=== PATIENT | female | born 1955 | race Caucasian/White ===

== ENCOUNTER 2016-04-10 17:54 | Emergency (ER) | payer BC ==
--- NOTE | 2016-04-10 19:25 | ERPHSYRPT ---
- History of Present Illness Time Seen by Provider: 04/10/16 19:00 Source: patient Exam Limitations: no limitations Patient Subjective Stated Complaint: pt co dizziness because left ear is bothering, she states she has been falling from it, it has been 4 days now. Triage Nursing Assessment: pt alert, unsteady on feetm grambling, restless, she states she is out of jake for 24 hours, skin w/d , resp easy Physician History: FOR THE PAST 5 DAYS PT HAS HAD DIZZINESS, CONFUSION, A LEFT EARACHE, FALLING EACH DAY WITH LOC 2 DAYS AGO AND HEAD CONTUSIONS ON THE LEFT WITH NECK PAIN. PT ALSO STATES DURING ONE OF THE FALLS SHE LANDED ON HER RIGHT HIP WITH RESULTANT PAIN. Allergies/Adverse Reactions: Sulfa (Sulfonamide Antibiotics) Allergy (Intermediate, Verified 04/10/16 18:23) Rash Home Medications: Baclofen 10 mg PO TID 11/27/15 [History] Methadone HCl 10 mg [DOLOPHINE 10MG Tablet] 10 mg PO BID 11/27/15 [History ] Pregabalin [Lyrica 150Mg] 150 mg PO TID 11/27/15 [History] Ropinirole 2Mg [Requip 2Mg Tab] 2 mg PO BID 11/27/15 [History] Metoprolol Succinate 25 mg DAILY 04/10/16 [History] Hx Tetanus, Diphtheria Vaccination/Date Given: No Hx Influenza Vaccination/Date Given: Yes Hx Pneumococcal Vaccination/Date Given: Yes Immunizations Up to Date: No - Review of Systems Constitutional: No Fever Ears, Nose, & Throat: Ear Pain (LEFT) Respiratory: No Dyspnea Cardiac: No Chest Pain Abdominal/Gastrointestinal: No Abdominal Pain, No Nausea, No Vomiting Musculoskeletal: Joint Pain (RIGHT HIP PAIN) Neurological: Dizziness, Headache, Other (CONFUSION; LOC.) All Other Systems: Reviewed and Negative - Past Medical History Pertinent Past Medical History: Yes Neurological History: Migraines, Peripheral Neuropathy Cardiac History: No Pertinent History Respiratory History: No Pertinent History Endocrine Medical History: No Pertinent History GI Medical History: GERD, Hernia - Past Surgical History Past Surgical History: Yes Female Surgical History: Tubal Ligation - Social History Smoking Status: Current every day smoker How long have you smoked: yrs Exposure to second hand smoke: Yes Drug Use: none Patient Lives Alone: No - Female History Hx Last Menstrual Period: post - Nursing Vital Signs Nursing Vital Signs: Initial Vital Signs Temperature 97.2 F Temperature Source Oral Pulse Rate 48 Respiratory Rate 20 Blood Pressure [] 149/86 Pain Intensity 8 - Physical Exam General Appearance: alert Eye Exam: PERRL/EOMI, eyes nml inspection Ears, Nose, Throat Exam: TMs normal, pharynx normal, moist mucous membranes Neck Exam: full range of motion, other (MILD POSTERIOR TENDERNESS) Respiratory Exam: lungs clear Cardiovascular Exam: normal heart sounds Gastrointestinal/Abdomen Exam: soft, normal bowel sounds, No tenderness Back Exam: normal range of motion Extremity Exam: normal range of motion, tenderness (MILD TENDERNESS OVER A BRUISE ON THE RIGHT HIP), No pedal edema Neurologic Exam: alert, cooperative, 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 nml as tested, normal mood/ affect Skin Exam: other (BRUISING OF THE LEFT SIDE OF THE FOREHEAD ~ 2 CM DIAMETER WITH MILD EDEMA) SpO2 Interpretation: normal SpO2: 96 Oxygen Delivery: Room Air - Course Nursing assessment & vital signs reviewed: Yes EKG Interpreted by Me: RATE (61), Sinus Rhythm, NORMAL AXIS, NORMAL INTERVALS - Radiology Exams Chest X-ray Interpretation: Interpreted by me, No Pneumonia Pelvis X-ray Interpretation: Interpreted by me, No Fracture Right Femur X-ray Interpretation: Interpreted by me, No Fracture - CT Exams Head CT Interpretation: Discussed w/radiologist (STABLE NORMAL CT HEAD COMPARED TO .) Cervical Spine CT Interpretation: Discussed w/radiologist (NO COMPS. MILD MOTION ARTIFACT. MILD LORDOTIC REVERSAL. 3MM ANTEROLISTHESIS C2 ON C3 ON C4 & MULTILEVEL DDD. NEGATIVE FX.) Ordered Tests: Active Orders 24 hr Category Date Time Status Online Publisher STAT Care 04/10/16 19:16 Active Cervical Collar Application STAT Care 04/10/16 21:22 Active EKG-ER Only STAT Care 04/10/16 19:16 Active IV Insertion STAT Care 04/10/16 19:16 Active CERVICAL SPINE WO CONTRAST [CT] Stat Exams 04/10/16 19:18 Taken CHEST 1 VIEW (PORTABLE) Stat Exams 04/10/16 19:17 Taken FEMUR Stat Exams 04/10/16 19:19 Taken HEAD WITHOUT CONTRAST [CT] Stat Exams 04/10/16 20:06 Taken PELVIS (1 OR 2 VIEWS) Stat Exams 04/10/16 19:19 Taken AMYLASE Stat Lab 04/10/16 19:20 Completed CBC W DIFF Stat Lab 04/10/16 19:20 Completed CMP Stat Lab 04/10/16 19:20 Completed CULTURE,URINE Stat Lab 04/10/16 21:36 Ordered Ethyl Alcohol,Urine Stat Lab 04/10/16 21:00 Completed LIPASE Stat Lab 04/10/16 19:20 Completed MAGNESIUM Stat Lab 04/10/16 19:20 Completed TROPONIN Stat Lab 04/10/16 19:20 Completed UA W/ MICROSCOPIC Stat Lab 04/10/16 21:00 Completed Urine Triage Profile Stat Lab 04/10/16 21:00 Completed Medication Summary Generic Name Dose Route Start Last Admin Trade Name Freq PRN Reason Stop Dose Admin Sodium Chloride 1,000 mls @ 100 mls/hr 04/10/16 19:30 04/10/16 19:49 Sodium Chloride 0.9% 1000 Ml IV 05/10/16 19:29 100 mls/hr .Q10H PRATIBHA Administration Ceftriaxone Sodium/Dextrose 50 mls @ 100 mls/hr 04/10/16 21:36 Rocephin 1 Gm-D5w 50 Ml Bag IV 04/10/16 22:05 STAT ONE Magnesium Oxide 400 mg 04/10/16 22:00 Mag-Ox 400 PO 05/10/16 21:59 BID PRATIBHA Magnesium Oxide 400 mg 04/10/16 22:00 Mag-Ox 400 PO 05/10/16 21:59 BID PRATIBHA Discontinued Medications Generic Name Dose Route Start Last Admin Trade Name Freq PRN Reason Stop Dose Admin Sodium Chloride Confirm 04/10/16 19:35 Sodium Chloride 0.9% 1000 Ml Administered 04/10/16 19:36 Dose 1,000 mls @ ud .ROUTE .[facility] Lab/Rad Data: Laboratory Result Diagrams 04/10/16 19:20 04/10/16 19:20 Laboratory Results 04/10/16 04/10/16 04/10/16 Range/Units 21:00 21:00 21:00 WBC (4.0-10.5) K/mm3 RBC (4.1-5.4) M/mm3 Hgb (12.0-16.0) gm/dl Hct (35-47) % MCV (78-100) fl MCH (26-32) pg MCHC (32-36) g/dl RDW (11.5-14.0) % Plt Count (150-450) K/mm3 MPV (6-9.5) fl Gran % (36.0-66.0) % Lymphocytes % (24.0-44.0) % Monocytes % (0.0-12.0) % Eosinophils % (0.00-5.0) % Basophils % (0.0-0.4) % Basophils # (0-0.4) Sodium (136-145) mEq/L Potassium (3.5-5.1) mEq/L Chloride (98-107) mEq/L Carbon Dioxide (21-32) mEq/L Anion Gap (5-15) MEQ/L BUN (9-20) mg/dL Creatinine (0.55-1.30) mg/dl Estimated GFR ML/MIN Glucose (70-110) MG/DL Calcium (8.5-10.1) mg/dL Magnesium (1.8-2.4) mg/dL Total Bilirubin (0.2-1.0) mg/dL AST (15-37) U/L ALT (12-78) U/L Alkaline Phosphatase (46-116) U/L Troponin I (0.000-0.056) ng/ml Serum Total Protein (6.4-8.2) gm/dL Albumin (3.4-5.0) g/dL Amylase (25-115) U/L Lipase (73-393) U/L Ur Collection Type CATH Urine Color FAYE (YELLOW) Urine Appearance SLIGHTLY CLOUDY (CLEAR) Urine pH 5.5 5.5 (5-6) Ur Specific [place] >=1.030 (1.005-1.025) Urine Protein NEGATIVE (Negative) Urine Glucose (UA) NEGATIVE (NEGATIVE) mg/dL Urine Ketones NEGATIVE (NEGATIVE) Urine Nitrite POSITIVE (NEGATIVE) Urine Bilirubin SMALL (NEGATIVE) Urine Urobilinogen 1 (0-1) mg/dL Urine WBC (Auto) TRACE (NEGATIVE) Urine RBC (Auto) NEGATIVE (0-5) Suraj/ul Urine Microscopic WBC 2-5 (0-5) /HPF Ur Epithelial Cells FEW (FEW) /HPF Urine Bacteria MANY (NEGATIVE) /HPF Urine Opiates Level NEG. (NEGATIVE) Ur Methadone POS. (NEGATIVE) Urine Barbiturates NEG. (NEGATIVE) Ur Phencyclidine (PCP) NEG. (NEGATIVE) Urine Amphetamine POS. (NEGATIVE) U Benzodiazepine Level NEG. (NEGATIVE) Urine Cocaine NEG. (NEGATIVE) Urine Marijuana (THC) POS. (NEGATIVE) Urine Ethyl Alcohol 3 (0.00-20) mg/dl Specimen Received 04/10/16:2100 04/10/16 04/10/16 Range/Units 19:20 19:20 WBC 5.2 (4.0-10.5) K/mm3 RBC 3.82 L (4.1-5.4) M/mm3 Hgb 11.5 L (12.0-16.0) gm/dl Hct 34.7 L (35-47) % MCV 90.8 (78-100) fl MCH 30.1 (26-32) pg MCHC 33.1 (32-36) g/dl RDW 14.2 H (11.5-14.0) % Plt Count 129 L (150-450) K/mm3 MPV 11.7 H (6-9.5) fl Gran % 49.5 (36.0-66.0) % Lymphocytes % 34.9 (24.0-44.0) % Monocytes % 13.1 H (0.0-12.0) % Eosinophils % 2.3 (0.00-5.0) % Basophils % 0.2 (0.0-0.4) % Basophils # 0.01 (0-0.4) Sodium 139 (136-145) mEq/L Potassium 3.8 (3.5-5.1) mEq/L Chloride 106 (98-107) mEq/L Carbon Dioxide 27.1 (21-32) mEq/L Anion Gap 9.9 (5-15) MEQ/L BUN 13 (9-20) mg/dL Creatinine 0.93 (0.55-1.30) mg/dl Estimated GFR > 60 ML/MIN Glucose 115 H (70-110) MG/DL Calcium 8.8 (8.5-10.1) mg/dL Magnesium 1.6 L (1.8-2.4) mg/dL Total Bilirubin 0.5 (0.2-1.0) mg/dL AST 23 (15-37) U/L ALT 20 (12-78) U/L Alkaline Phosphatase 82 (46-116) U/L Troponin I 0.017 (0.000-0.056) ng/ml Serum Total Protein 6.8 (6.4-8.2) gm/dL Albumin 3.4 (3.4-5.0) g/dL Amylase 15 L (25-115) U/L Lipase 63 L (73-393) U/L Ur Collection Type Urine Color (YELLOW) Urine Appearance (CLEAR) Urine pH (5-6) Ur Specific [place] (1.005-1.025) Urine Protein (Negative) Urine Glucose (UA) (NEGATIVE) mg/dL Urine Ketones (NEGATIVE) Urine Nitrite (NEGATIVE) Urine Bilirubin (NEGATIVE) Urine Urobilinogen (0-1) mg/dL Urine WBC (Auto) (NEGATIVE) Urine RBC (Auto) (0-5) Suraj/ul Urine Microscopic WBC (0-5) /HPF Ur Epithelial Cells (FEW) /HPF Urine Bacteria (NEGATIVE) /HPF Urine Opiates Level (NEGATIVE) Ur Methadone (NEGATIVE) Urine Barbiturates (NEGATIVE) Ur Phencyclidine (PCP) (NEGATIVE) Urine Amphetamine (NEGATIVE) U Benzodiazepine Level (NEGATIVE) Urine Cocaine (NEGATIVE) Urine Marijuana (THC) (NEGATIVE) Urine Ethyl Alcohol (0.00-20) mg/dl Specimen Received - Departure Time of Disposition: 21:42 Departure Disposition: Home Clinical Impression: HEAD CONTUSION, CERVICAL SPRAIN, CONTUSION OF THE RIGHT HIP, HYPOMAGNESEMIA, AMPHETAMINE AND MARIJUANA USE, UTI Condition: Fair Critical Care Time: No Referrals: CHE LOPEZ [Primary Care Provider] - Instructions: Urinary Tract Infection (UTI), Closed Head Injury, Whiplash Additional Instructions: FOLLOW UP WITH PRIVATE DOCTOR TOMORROW. WEAR SOFT C-COLLAR FOR 2 WEEKS ONLY WHILE AWAKE. Prescriptions: Naproxen 375 mg [Naprosyn 375 mg] 375 mg PO [id number] PRN #20 tablet PRN Reason: Pain Cyclobenzaprine HCl [Flexeril] 10 mg PO TID #20 tablet Nitrofurantoin Macro 100 mg [Macrobid 100MG Capsule] 100 mg PO BID #20 capsule
[2016-04-10] MEDS ORDERED: Sodium Chloride 0.9% 1000 ML 1,000 ML IV SCH (19:30)
[2016-04-10] MEDS ORDERED: Sodium Chloride 0.9% 1000 ML 1,000 ML ONE (19:35)
[2016-04-10 19:36] LABS: BASOPHIL % 0.2 % (0.0-0.4); Eosinophil % 2.3 % (0.00-5.0); Granulocytes % 49.5 % (36.0-66.0); Lymphocytes % 34.9 % (24.0-44.0); Mean Cell Volume 90.8 fl (78-100); Mean Corpuscular Hemoglobin 30.1 pg (26-32); Mean Platelet Volume 11.7 fl (6-9.5); Monocytes % 13.1 % (0.0-12.0); Platelet Count 129 K/mm3 (150-450); Red Blood Count 3.82 M/mm3 (4.1-5.4); Red Cell Distribution Width 14.2 % (11.5-14.0); White Blood Count 5.2 K/mm3 (4.0-10.5)
[2016-04-10 19:59] LABS: ALBUMIN 3.4 g/dL (3.4-5.0); ALKALINE PHOSPHATASE 82 U/L (46-116); ANION GAP 9.9 MEQ/L (5-15); BILIRUBIN,TOTAL 0.5 mg/dL (0.2-1.0); BLOOD UREA NITROGEN 13 mg/dL (9-20); CHLORIDE 106 mEq/L (98-107); Carbon Dioxide 27.1 mEq/L (21-32); Glucose 115 MG/DL (70-110); LIPASE 63 U/L (73-393); MAGNESIUM 1.6 mg/dL (1.8-2.4); Potassium 3.8 mEq/L (3.5-5.1); SGOT/AST 23 U/L (15-37); SGPT/ALT 20 U/L (12-78); SODIUM 139 mEq/L (136-145); TROPONIN 0.017 ng/ml (0.000-0.056); Total Protein 6.8 gm/dL (6.4-8.2)
[2016-04-10 21:27] LABS: Bacteria MANY /HPF (NEGATIVE); COMPLETE URINE MICROSCOPIC? YES; Collection Type CATH; Epithelial Cells FEW /HPF (FEW); Ph 5.5 (5-6)
[2016-04-10] MEDS ORDERED: ROCEPHIN 1 Gm-D5w 50 ml Bag** 50 ML IV ONE ×2 (21:36→21:49)
[2016-04-10] MEDS ORDERED: MAG-OX 400 ONE (21:49)
[2016-04-10] MEDS ORDERED: MAG-OX 400 PO SCH ×2 (22:00)
[2016-04-10 22:37] VITALS: BP 148/101; PULSE 54; O2SAT 96
--- NOTE | 2016-04-11 08:50 | XRAY ---
Indication: Frequent falls. Loss of consciousness. Comparison: None Portable chest demonstrates scattered calcified granulomas. No focal infiltrate, consolidation, or large effusion. Heart is not enlarged. Bony thorax intact with mild osteopenia and mild scoliosis. Impression: Nonacute chest with chronic features.
--- NOTE | 2016-04-11 08:50 | XRAY ---
Indication: Frequent falls. Loss of consciousness. Neck pain. Multiple contiguous axial images obtained through the head without contrast. Comparison: December 01, 2015. Again normal appearing brain parenchyma, ventricles, and bony calvarium. Right sphenoid sinus now demonstrates mild mucosal thickening with fluid leveling. Remaining visualized paranasal sinuses and mastoid air cells are clear. Impression: Again no acute intracranial abnormalities. Incidental paranasal sinus disease. CT DI 51.27
--- NOTE | 2016-04-11 08:52 | XRAY ---
Indication: Pain. Frequent falls. Comparison: None 2 views of the right femur obtained. No bony, articular, or soft tissue abnormalities. Pelvis reported separately.
--- NOTE | 2016-04-11 08:52 | XRAY ---
Indication: Right hip pain. Frequent falls. Comparison: None Single AP pelvis demonstrates pelvic phleboliths and minimal bilateral superior acetabular spurring. No other bony, articular, or soft tissue abnormalities.
--- NOTE | 2016-04-11 11:30 | XRAY ---
Indication: Frequent falls. Loss of consciousness. Neck pain. Multiple contiguous axial images obtained through the cervical spine. Sagittal and coronal reformatted images obtained. Comparison: None. Minimal multilevel motion artifact. Axial images negative for acute fracture, suspicious bony lesions, or spinal canal stenosis. Multilevel bilateral degenerative facet hypertrophy and anterior endplate spurring. Additional atlantoaxial degenerative changes. Sagittal and coronal reformatted images demonstrates mild lordotic reversal. There is approximately 3 mm anterolisthesis of C2 on C3 on C4. Disc spaces maintained. No acute compression fracture or jumped facet. Normal-appearing craniocervical junction. Visualized noncontrasted soft tissues demonstrates minimal right carotid calcifications and left apical calcified granulomas. CT head reported separately. Impression: 1. Negative for acute fracture. 2. Multilevel degenerative changes including grade 1 anterolisthesis of C2-C3-C4. CT DI 100.31
== END 2016-04-10 22:45 | disposition home or self-care (01) ==
LOC: ED 17:54
DX: S00.93XA Contusion of unspecified part of head, initial encounter (principal); S13.4XXA Sprain of ligaments of cervical spine, initial encounter; S70.01XA Contusion of right hip, initial encounter; E83.42 Hypomagnesemia; F15.90 Other stimulant use, unspecified, uncomplicated; F12.90 Cannabis use, unspecified, uncomplicated; N39.0 Urinary tract infection, site not specified
CPT/HCPCS: 36000; 36415; 70450; 71010; 72125; 72170; 73552; 80053; 80307; 80320; 81000; 82150; 83690; 83735; 83986; 84484; 85025; 87077; 87086; 87186; 93005; 93041; 96360; 96361; 96365; 99284; J0696; P9612

== ENCOUNTER 2016-04-27 01:27 | Emergency (ER) | payer BC ==
[2016-04-27] MEDS ORDERED: Sodium Chloride 0.9% 1000 ML 1,000 ML IV STA (01:47)
[2016-04-27] MEDS ORDERED: THIAMINE 200 MG/2 ML IV ONE (01:48)
--- NOTE | 2016-04-27 01:56 | ERPHSYRPT ---
- History of Present Illness Time Seen by Provider: 04/27/16 01:50 Source: patient Exam Limitations: no limitations Physician History: This is a 60-year-old white female with history of peripheral neuropathy GERD hiatal hernia who is on methadone She arrives with complaints that she believes that somebody put something poisonous substances in her ice cream this evening Patient states that she apparently feels that people have been messing with her television set she feels that her neighbors don't like her she feels that she went to eat she began to have terrible taste in her mouth she feels as if somebody put some substance into her ice cream states that she ate her ice cream somewhere between 7 and 12:30, She summoned the medics because she had the terrible taste in her mouth, On arrival she states she is having pain in all of her joints she denies any chest pain she is not short of breath she has not vomited, Patient had a similar presentation to [facility] recently, Patient denies any homicidal or suicidal ideation, Past medical history includes peripheral neuropathy, GERD, hiatal hernia, Past surgical history includes tubal ligation, Social history is positive for she smokes alcohol use patient states she had some sometime split some alcohol alcohol in her ice cream. Timing/Duration: other (somewhere between 7:00 last night ) Modifying Factors: Improves With: other (patient ate ice cream and consumed alcohol and began having bad taste in her mouth feels as if she has been poisoned) Associated Symptoms: malaise, other (patient has a bad taste in her mouth, all of her joints ache), No nausea, No vomiting, No abdominal pain, No shortness of breath, No heartburn, No diaphoresis, No cough, No chills, No chest pain, No fever, No headaches, No loss of appetite, No rash, No syncope, No seizure, No weakness Allergies/Adverse Reactions: Sulfa (Sulfonamide Antibiotics) Allergy (Intermediate, Verified 04/27/16 02:05) Rash Home Medications: Baclofen 10 mg PO TID 11/27/15 [History] Methadone HCl 10 mg [DOLOPHINE 10MG Tablet] 10 mg PO BID 11/27/15 [History ] Pregabalin [Lyrica 150Mg] 150 mg PO TID 11/27/15 [History] Ropinirole 2Mg [Requip 2Mg Tab] 2 mg PO BID 11/27/15 [History] Metoprolol Succinate 25 mg DAILY 04/10/16 [History] Hx Tetanus, Diphtheria Vaccination/Date Given: No Hx Influenza Vaccination/Date Given: Yes Hx Pneumococcal Vaccination/Date Given: Yes - Review of Systems Constitutional: No Fever, No Chills Eyes: No Symptoms, No Eye Pain, No Eye Redness, No Itchy, No Photophobia, No Tearing, No Vision Changes, No Double Vision, No Foreign Body Sensation Ears, Nose, & Throat: Other (patient states she has a bad taste in her mpout), No Ear Pain, No Ear Discharge, No Hearing Changes, No Tinnitus, No Nose Pain, No Nose Congestion, No Nose Discharge, No Sinus Drainage, No Epistaxis, No Mouth Pain, No Mouth Swelling, No Loose Teeth, No Throat Pain, No Throat Swelling, No Hoarse, No Painful Swallowing, No Snoring, No Stridor Respiratory: No Cough, No Dyspnea Cardiac: No Chest Pain, No Edema, No Syncope Abdominal/Gastrointestinal: No Abdominal Pain, No Nausea, No Vomiting, No Diarrhea Genitourinary Symptoms: No Dysuria Musculoskeletal: Arthralgias (Patient states all of her joints ache) Skin: No Rash Neurological: No Dizziness, No Focal Weakness, No Sensory Changes Psychological: Other (patient with possible paranoid ideation feels as if people are trying to poison her), No Suicidal Ideations, No Homicidal Ideations Endocrine: No Symptoms All Other Systems: Reviewed and Negative - Past Medical History Pertinent Past Medical History: Yes Neurological History: Migraines, Peripheral Neuropathy Cardiac History: No Pertinent History Respiratory History: No Pertinent History Endocrine Medical History: No Pertinent History GI Medical History: GERD, Hernia - Past Surgical History Past Surgical History: Yes Female Surgical History: Tubal Ligation - Social History Smoking Status: Current every day smoker How long have you smoked: yrs Exposure to second hand smoke: Yes Drug Use: marijuana Patient Lives Alone: No - Nursing Vital Signs Nursing Vital Signs: Initial Vital Signs Temperature 97.7 F Temperature Source Oral Pulse Rate 80 Respiratory Rate 16 Blood Pressure [Right Arm] 120/78 Pain Intensity 0 - Physical Exam General Appearance: mild distress, other (well-developed elderly appearing white female somewhat anxious rubbing her knees) Eye Exam: PERRL/EOMI, eyes nml inspection Ears, Nose, Throat Exam: normal ENT inspection Neck Exam: normal inspection, non-tender, supple, full range of motion Respiratory Exam: normal breath sounds, lungs clear, No respiratory distress Cardiovascular Exam: regular rate/rhythm, normal heart sounds, normal peripheral pulses Gastrointestinal/Abdomen Exam: soft, normal bowel sounds, No tenderness, No mass Back Exam: normal inspection, normal range of motion, No CVA tenderness, No vertebral tenderness Extremity Exam: normal inspection, normal range of motion, pelvis stable Neurologic Exam: alert, oriented x 3, cooperative, normal mood/affect, nml cerebellar function, nml station & gait, sensation nml, No motor deficits Skin Exam: normal color, warm, dry, No rash Lymphatic Exam: No adenopathy SpO2 Interpretation: normal (90%) - Course Nursing assessment & vital signs reviewed: Yes EKG Interpreted by Me: RATE (76 bpm), Sinus Rhythm, NORMAL AXIS, NORMAL QRS, Other (EKG, sinus rhythm, 76 beats per minute, normal axis, no acute ST or T wave changes, essentially normal EKG) Ordered Tests: Active Orders 24 hr Category Date Time Status Accucheck STAT Care 04/27/16 01:47 Active EKG-ER Only STAT Care 04/27/16 01:47 Active IV Insertion STAT Care 04/27/16 01:47 Active ACETAMINOPHEN Stat Lab 04/27/16 02:00 Completed CBC W DIFF Stat Lab 04/27/16 02:00 Completed CMP Stat Lab 04/27/16 02:00 Completed Ethyl Alcohol,Urine Stat Lab 04/27/16 02:20 Completed HCG QUALITATIVE,SERUM Stat Lab 04/27/16 02:00 Completed HCG, Quantitative (Inhouse) Stat Lab 04/27/16 02:00 Completed Lactic Acid Urgent Lab 04/27/16 02:09 Completed SALICYLATE Stat Lab 04/27/16 02:00 Completed TROPONIN Q3H Lab 04/27/16 02:00 Completed TROPONIN Q3H Lab 04/27/16 05:00 Ordered TROPONIN Q3H Lab 04/27/16 08:00 Ordered TROPONIN Q3H Lab 04/27/16 11:00 Ordered TROPONIN Q3H Lab 04/27/16 14:00 Ordered UA Stat Lab 04/27/16 02:20 Completed Urine Triage Profile Stat Lab 04/27/16 02:20 Completed Medication Summary Discontinued Medications Generic Name Dose Route Start Last Admin Trade Name Freq PRN Reason Stop Dose Admin Sodium Chloride 1,000 mls @ 999 mls/hr 04/27/16 01:47 04/27/16 02:06 Sodium Chloride 0.9% 1000 Ml IV 04/27/16 02:47 999 mls/hr .Q1H1M STA Administration Sodium Chloride Confirm 04/27/16 02:05 Sodium Chloride 0.9% 1000 Ml Administered 04/27/16 02:06 Dose 1,000 mls @ ud .ROUTE .STK-MED ONE Thiamine HCl 100 mg 04/27/16 01:48 04/27/16 02:06 Thiamine 200 Mg/2 Ml IV 04/27/16 01:49 100 mg STAT ONE Administration Thiamine HCl Confirm 04/27/16 02:05 Thiamine 200 Mg/2 Ml Administered 04/27/16 02:06 Dose 200 mg .ROUTE .STK-MED ONE Lab/Rad Data: Laboratory Result Diagrams 04/27/16 02:00 04/27/16 02:00 Laboratory Results 04/27/16 04/27/16 04/27/16 Range/Units 02:20 02:20 02:20 WBC (4.0-10.5) K/mm3 RBC (4.1-5.4) M/mm3 Hgb (12.0-16.0) gm/dl Hct (35-47) % MCV (78-100) fl MCH (26-32) pg MCHC (32-36) g/dl RDW (11.5-14.0) % Plt Count (150-450) K/mm3 MPV (6-9.5) fl Gran % (36.0-66.0) % Lymphocytes % (24.0-44.0) % Monocytes % (0.0-12.0) % Eosinophils % (0.00-5.0) % Basophils % (0.0-0.4) % Basophils # (0-0.4) Sodium (136-145) mEq/L Potassium (3.5-5.1) mEq/L Chloride (98-107) mEq/L Carbon Dioxide (21-32) mEq/L Anion Gap (5-15) MEQ/L BUN (9-20) mg/dL Creatinine (0.55-1.30) mg/dl Estimated GFR ML/MIN Glucose (70-110) MG/DL Lactic Acid (0.4-2.0) Calcium (8.5-10.1) mg/dL Total Bilirubin (0.2-1.0) mg/dL AST (15-37) U/L ALT (12-78) U/L Alkaline Phosphatase (46-116) U/L Troponin I (0.000-0.056) ng/ml Serum Total Protein (6.4-8.2) gm/dL Albumin (3.4-5.0) g/dL Beta HCG, Quant (0-6) IU/L Serum , Qual (Negative) Ur Collection Type CATH Urine Color YELLOW (YELLOW) Urine Appearance CLEAR (CLEAR) Urine pH 7.0 7.0 (5-6) Ur Specific [place] 1.010 (1.005-1.025) Urine Protein NEGATIVE (Negative) Urine Glucose (UA) NEGATIVE (NEGATIVE) mg/dL Urine Ketones NEGATIVE (NEGATIVE) Urine Nitrite NEGATIVE (NEGATIVE) Urine Bilirubin NEGATIVE (NEGATIVE) Urine Urobilinogen 0.2 (0-1) mg/dL Urine WBC (Auto) NEGATIVE (NEGATIVE) Urine RBC (Auto) NEGATIVE (0-5) Suraj/ul Salicylates (2.8-20.0) mg/dl Urine Opiates Level NEG. (NEGATIVE) Ur Methadone POS. (NEGATIVE) Acetaminophen (10-30) ug/ml Urine Barbiturates NEG. (NEGATIVE) Ur Phencyclidine (PCP) NEG. (NEGATIVE) Urine Amphetamine NEG. (NEGATIVE) U Benzodiazepine Level NEG. (NEGATIVE) Urine Cocaine NEG. (NEGATIVE) Urine Marijuana (THC) NEG. (NEGATIVE) Urine Ethyl Alcohol 1 (0.00-20) mg/dl Specimen Received 04/27/16:0220 04/27/16 04/27/16 04/27/16 Range/Units 02:09 02:00 02:00 WBC (4.0-10.5) K/mm3 RBC (4.1-5.4) M/mm3 Hgb (12.0-16.0) gm/dl Hct (35-47) % MCV (78-100) fl MCH (26-32) pg MCHC (32-36) g/dl RDW (11.5-14.0) % Plt Count (150-450) K/mm3 MPV (6-9.5) fl Gran % (36.0-66.0) % Lymphocytes % (24.0-44.0) % Monocytes % (0.0-12.0) % Eosinophils % (0.00-5.0) % Basophils % (0.0-0.4) % Basophils # (0-0.4) Sodium (136-145) mEq/L Potassium (3.5-5.1) mEq/L Chloride (98-107) mEq/L Carbon Dioxide (21-32) mEq/L Anion Gap (5-15) MEQ/L BUN (9-20) mg/dL Creatinine (0.55-1.30) mg/dl Estimated GFR ML/MIN Glucose (70-110) MG/DL Lactic Acid 0.7 (0.4-2.0) Calcium (8.5-10.1) mg/dL Total Bilirubin (0.2-1.0) mg/dL AST (15-37) U/L ALT (12-78) U/L Alkaline Phosphatase (46-116) U/L Troponin I < 0.017 (0.000-0.056) ng/ml Serum Total Protein (6.4-8.2) gm/dL Albumin (3.4-5.0) g/dL Beta HCG, Quant 7 H (0-6) IU/L Serum , Qual (Negative) Ur Collection Type Urine Color (YELLOW) Urine Appearance (CLEAR) Urine pH (5-6) Ur Specific [place] (1.005-1.025) Urine Protein (Negative) Urine Glucose (UA) (NEGATIVE) mg/dL Urine Ketones (NEGATIVE) Urine Nitrite (NEGATIVE) Urine Bilirubin (NEGATIVE) Urine Urobilinogen (0-1) mg/dL Urine WBC (Auto) (NEGATIVE) Urine RBC (Auto) (0-5) Suraj/ul Salicylates (2.8-20.0) mg/dl Urine Opiates Level (NEGATIVE) Ur Methadone (NEGATIVE) Acetaminophen (10-30) ug/ml Urine Barbiturates (NEGATIVE) Ur Phencyclidine (PCP) (NEGATIVE) Urine Amphetamine (NEGATIVE) U Benzodiazepine Level (NEGATIVE) Urine Cocaine (NEGATIVE) Urine Marijuana (THC) (NEGATIVE) Urine Ethyl Alcohol (0.00-20) mg/dl Specimen Received 04/27/16 04/27/16 04/27/16 Range/Units 02:00 02:00 02:00 WBC 5.3 (4.0-10.5) K/mm3 RBC 3.77 L (4.1-5.4) M/mm3 Hgb 11.5 L (12.0-16.0) gm/dl Hct 34.3 L (35-47) % MCV 91.0 (78-100) fl MCH 30.5 (26-32) pg MCHC 33.5 (32-36) g/dl RDW 14.4 H (11.5-14.0) % Plt Count 134 L (150-450) K/mm3 MPV 10.9 H (6-9.5) fl Gran % 44.4 (36.0-66.0) % Lymphocytes % 29.3 (24.0-44.0) % Monocytes % 15.3 H (0.0-12.0) % Eosinophils % 10.6 H (0.00-5.0) % Basophils % 0.4 (0.0-0.4) % Basophils # 0.02 (0-0.4) Sodium 140 (136-145) mEq/L Potassium 3.9 (3.5-5.1) mEq/L Chloride 104 (98-107) mEq/L Carbon Dioxide 28.6 (21-32) mEq/L Anion Gap 11.0 (5-15) MEQ/L BUN 8 L (9-20) mg/dL Creatinine 0.68 (0.55-1.30) mg/dl Estimated GFR > 60 ML/MIN Glucose 92 (70-110) MG/DL Lactic Acid (0.4-2.0) Calcium 8.7 (8.5-10.1) mg/dL Total Bilirubin 0.2 (0.2-1.0) mg/dL AST 24 (15-37) U/L ALT 15 (12-78) U/L Alkaline Phosphatase 80 (46-116) U/L Troponin I (0.000-0.056) ng/ml Serum Total Protein 6.5 (6.4-8.2) gm/dL Albumin 3.2 L (3.4-5.0) g/dL Beta HCG, Quant (0-6) IU/L Serum , Qual POSITIVE (Negative) Ur Collection Type Urine Color (YELLOW) Urine Appearance (CLEAR) Urine pH (5-6) Ur Specific [place] (1.005-1.025) Urine Protein (Negative) Urine Glucose (UA) (NEGATIVE) mg/dL Urine Ketones (NEGATIVE) Urine Nitrite (NEGATIVE) Urine Bilirubin (NEGATIVE) Urine Urobilinogen (0-1) mg/dL Urine WBC (Auto) (NEGATIVE) Urine RBC (Auto) (0-5) Suraj/ul Salicylates < 2.8 L (2.8-20.0) mg/dl Urine Opiates Level (NEGATIVE) Ur Methadone (NEGATIVE) Acetaminophen < 2.0 L (10-30) ug/ml Urine Barbiturates (NEGATIVE) Ur Phencyclidine (PCP) (NEGATIVE) Urine Amphetamine (NEGATIVE) U Benzodiazepine Level (NEGATIVE) Urine Cocaine (NEGATIVE) Urine Marijuana (THC) (NEGATIVE) Urine Ethyl Alcohol (0.00-20) mg/dl Specimen Received - Progress Progress: improved Progress Note: 04/27/16 01:58 This is a 60-year-old white female who arrives with complaints that she feels as if she has been poisoned she states she has been having a bad taste in her mouth and she is having aches in all of her joints this after eating some ice cream and drinking some alcohol. Patient has expressed the belief that somebody is going into her house and messing with her TV. She's apparently was seen on April 10, 2016 and at that time it was noted that the patient had used amphetamines and marijuana. Patient apparently had been seen recently at [facility] with similar complaints she states that they did a tox screen on her at this time. Patient although exhibiting paranoid ideation does not express any suicidal or homicidal ideation. It is noted that the patient does have chronic pain and is on methadone. 04/27/16 03:15 Patient is feeling much better after IV fluids. Chemistry EKG troponin CBC all within normal limits. Tox screen is positive for methadone which patient is taking there are no illicit substances noted in the screen. Interestingly enough patient's hCG was positive quantitative hCG however only 7 international units per liter (normal of 0-6) Will have patient follow-up with her family doctor patient has had a tubal and has not had a period for 5 years.. - Departure Time of Disposition: 03:17 Departure Disposition: Home Clinical Impression: Anxiety, incidental hCG 7iu/l Condition: Fair Critical Care Time: No Instructions: Anxiety -- Adult Additional Instructions: Return home. Plenty of fluids. 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 Follow-up with your family doctor call tomorrow for an appointment. Return for acute distress or for severe symptoms.
[2016-04-27 02:05] LABS: BASOPHIL % 0.4 % (0.0-0.4); Eosinophil % 10.6 % (0.00-5.0); Granulocytes % 44.4 % (36.0-66.0); Lymphocytes % 29.3 % (24.0-44.0); Mean Corpuscular Hemoglobin 30.5 pg (26-32); Mean Platelet Volume 10.9 fl (6-9.5); Monocytes % 15.3 % (0.0-12.0); Platelet Count 134 K/mm3 (150-450); Red Blood Count 3.77 M/mm3 (4.1-5.4); Red Cell Distribution Width 14.4 % (11.5-14.0); White Blood Count 5.3 K/mm3 (4.0-10.5)
[2016-04-27] MEDS ORDERED: Sodium Chloride 0.9% 1000 ML 1,000 ML ONE (02:05)
[2016-04-27] MEDS ORDERED: THIAMINE 200 MG/2 ML ONE (02:05)
[2016-04-27 02:31] LABS: COMPLETE URINE MICROSCOPIC? NO; Collection Type CATH
[2016-04-27 02:35] LABS: ALBUMIN 3.2 g/dL (3.4-5.0); ALKALINE PHOSPHATASE 80 U/L (46-116); BILIRUBIN,TOTAL 0.2 mg/dL (0.2-1.0); BLOOD UREA NITROGEN 8 mg/dL (9-20); CHLORIDE 104 mEq/L (98-107); Carbon Dioxide 28.6 mEq/L (21-32); Glucose 92 MG/DL (70-110); Potassium 3.9 mEq/L (3.5-5.1); SGOT/AST 24 U/L (15-37); SGPT/ALT 15 U/L (12-78); SODIUM 140 mEq/L (136-145); Total Protein 6.5 gm/dL (6.4-8.2)
[2016-04-27 02:49] LABS: ACETAMINOPHEN < 2.0 ug/ml (10-30)
[2016-04-27 03:46] VITALS: BP 121/70; PULSE 72; O2SAT 70
== END 2016-04-27 03:46 | disposition home or self-care (01) ==
LOC: ED 01:27
DX: F41.9 Anxiety disorder, unspecified (principal); Z33.1 Pregnant state, incidental
CPT/HCPCS: 36000; 36415; 80053; 80307; 80320; 81002; 82962; 83605; 83986; 84484; 84702; 84703; 85025; 93005; 96360; 96374; 99284; G0481; P9612

== ENCOUNTER 2016-05-08 11:58 | Emergency (ER) | payer OTHER ==
[2016-05-08 12:11] VITALS: O2SAT 100
--- NOTE | 2016-05-08 12:37 | ERPHSYRPT ---
- History of Present Illness Time Seen by Provider: 05/08/16 12:20 Source: patient Exam Limitations: clinical condition Patient Subjective Stated Complaint: PT WAS DRIVING WHEN SHE SMELLED A VERY BAD SMELL IN HER CAR-STATED THAT SHE STARTED GETTING DIZZY ET NOT FEELING WELL- STATED THAT SHE PULLED IN THE GAS STATION ET STARTED FEELING BETTER-STATES SHE WAS SEEN [facility] YEST[facility] DUE TO THERE BEING A GUMMY SUBSTANCE ON HER DENTURES-STATES SHE IS SCARED TO GO HOME BUT LIVES WITH HER STEP MOM-STATES AFTER SHE IS DC FROM ED SHE IS GOING TO GO TO [facility] ET HER PRIMARY CARE BECAUSE THEY ARE JUST [place] [address] Triage Nursing Assessment: PT ALERT-VERY TALKATIVE ET ANSWERING QUESTIONS CORRECTLY-RESP NONLAOBRED ET EASY-PT MOVING ALL EXTREMITIES WITH EASE Physician History: PATIENT WITH HISTORY OF PERIPHERAL NEUROPATHY, MIGRAINE HEADACHE, AND DEPRESSION COMPLAINS OF SMELLING GAS FUMES WHILE DRIVING CAR. HAS ASSOCAITED TRANSIENT DIZZINESS, BUT DENIES DYSPNEA, DIFFICULTY BREATHING OR HEADACHE, NAUSEA OR EMESIS. Timing/Duration: today Severity: moderate Character of Deficits: none Deficits: no difficulties Baseline/Normal Cognition: alert oriented x 3 Current Cognition: alert oriented x 3 Baseline Gait: walks w/o assistance Associated Symptoms: other (DIZZINESS) Allergies/Adverse Reactions: Sulfa (Sulfonamide Antibiotics) Allergy (Intermediate, Verified 05/08/16 12:12) Rash Home Medications: Baclofen 10 mg PO TID 11/27/15 [History] Methadone HCl 10 mg [DOLOPHINE 10MG Tablet] 10 mg PO BID 11/27/15 [History ] Pregabalin [Lyrica 150Mg] 150 mg PO TID 11/27/15 [History] Ropinirole 2Mg [Requip 2Mg Tab] 2 mg PO BID 11/27/15 [History] Metoprolol Succinate 25 mg DAILY 04/10/16 [History] Hx Tetanus, Diphtheria Vaccination/Date Given: No Hx Influenza Vaccination/Date Given: Yes Hx Pneumococcal Vaccination/Date Given: Yes Immunizations Up to Date: Yes - Review of Systems Constitutional: No Fever, No Chills Eyes: No Symptoms Ears, Nose, & Throat: No Symptoms Respiratory: No Symptoms, No Cough, No Dyspnea Cardiac: No Symptoms, No Chest Pain, No Edema, No Syncope Abdominal/Gastrointestinal: No Symptoms, No Abdominal Pain, No Nausea, No Vomiting, No Diarrhea Genitourinary Symptoms: No Symptoms, No Dysuria Musculoskeletal: No Symptoms, Joint Redness, No Back Pain, No Neck Pain Skin: No Symptoms, No Rash Neurological: Dizziness, No Focal Weakness, No Sensory Changes Psychological: No Symptoms Endocrine: No Symptoms All Other Systems: Reviewed and Negative - Past Medical History Pertinent Past Medical History: Yes Neurological History: Migraines, Peripheral Neuropathy Cardiac History: No Pertinent History Respiratory History: No Pertinent History Endocrine Medical History: No Pertinent History GI Medical History: GERD, Hernia - Past Surgical History Past Surgical History: Yes Female Surgical History: Tubal Ligation - Social History Smoking Status: Current every day smoker How long have you smoked: yrs Exposure to second hand smoke: Yes Drug Use: marijuana Patient Lives Alone: No - Nursing Vital Signs Nursing Vital Signs: Initial Vital Signs Temperature 98.1 F Temperature Source Oral Pulse Rate 113 Respiratory Rate 22 Blood Pressure [Left Arm] 134/97 Pain Intensity 0 - [place] Coma Scale Best Eye Response ([place]): (4) open spontaneously Best Verbal Response ([place]): (5) oriented Best Motor Response ([place]): (6) obeys commands Nathaniel Total: 15 - Physical Exam General Appearance: no apparent distress, alert Eye Exam: bilateral eye: normal inspection, PERRL, EOMI Ears, Nose, Throat Exam: normal ENT inspection, moist mucous membranes Neck Exam: normal inspection, non-tender, supple Respiratory: normal breath sounds, lungs clear, airway intact, No respiratory distress Cardiovascular: regular rate/rhythm, No edema Gastrointestinal: soft, normal bowel sounds, No tenderness, No distention Back Exam: normal inspection Extremity Exam: normal inspection, No pedal edema Peripheral Pulses: carotid (R): 2+, carotid (L): 2+, femoral (R): 2+, femoral (L ): 2+, dorsalis-pedis (R): 2+ 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, 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: 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 Coordination/Gait: normal finger to nose, normal gait DTR: bicep (R): 2+, bicep (L): 2+, tricep (R): 2+, tricep (L): 2+, knee (R): 2+ , knee (L): 2+, ankle (R): 2+, ankle (L): 2+ Skin Exam: normal color, warm, dry, No rash SpO2 Interpretation: normal SpO2: 100 Oxygen Delivery: Room Air Ordered Tests: Active Orders 24 hr Category Date Time Status ARTERIAL BLOOD GASES Stat Lab 05/08/16 12:29 Ordered - Progress Progress: improved Progress Note: 05/08/16 13:15 CARBOXYGEMOGLOBIN -3, PATIENT ADMINISTERED NONREBREATHER FOR 45 MINUTES Counseled pt/family regarding: lab results, diagnosis, need for follow-up - Departure Time of Disposition: 13:25 Departure Disposition: Home Clinical Impression: INHLALATION EXPOSURE Condition: Stable Critical Care Time: No Additional Instructions: FOLLOWUP WITH YOUR FAMILY PHYSICIAN FOR EVALUATION IN 1 WEEK. RETURN TO EMERGENCY FOR DIFFICULTY BREATHING.
[2016-05-08 13:11] VITALS: BP 143/86; PULSE 80
[2016-05-08 13:12] LABS: A-aADO2 336; ARTERIAL BLD GAS O2 SATURATION 99.5 % (95-100); ARTERIAL BLOOD GAS BASE EXCESS 4.3 (-2.0-2.0); ARTERIAL BLOOD GAS FIO2 100 %; ARTERIAL BLOOD GAS PO2 322 mmHg (75-100); ARTERIAL BLOOD GAS pH 7.43 (7.35-7.45)
== END 2016-05-08 13:10 | disposition home or self-care (01) ==
LOC: ED 11:58
DX: T59.91XA Toxic effect of unspecified gases, fumes and vapors, accidental (unintentional), initial encounter (principal); R42 Dizziness and giddiness
CPT/HCPCS: 36600; 82375; 82803; 99283

== ENCOUNTER 2016-07-24 06:05 | Day surgery (SDC) | payer OTHER ==
[~2016-07-24 06:05] MED LIST: Lactated Ringers 1,000 ML IV SCH
[2016-07-24 06:35] VITALS: O2SAT 96
[2016-07-24] MEDS ORDERED: Lactated Ringers 1,000 ML IV ONE (07:32)
[2016-07-24] MEDS ORDERED: Versed 2 MG/2 ML Injection IV ONE (08:00)
[2016-07-24] MEDS ORDERED: DIPRIVAN 200 MG/20 ML IV ONE (08:00)
[2016-07-24 08:10] VITALS: BP 132/76; PULSE 54
--- NOTE | 2016-07-24 09:05 | OP ---
SURGERY DATE/TIME: 07/24/2016 0658 PREOPERATIVE DIAGNOSIS: Reflux. POSTOPERATIVE DIAGNOSIS: Moderate gastritis. PROCEDURE: Esophagogastroduodenoscopy with biopsy. SURGEON: Dr. Bennett. ANESTHESIA: MAC. Medications were given by the anesthesia department. BRIEF HISTORY: The patient is a 61 year old white female who presents now for endoscopic evaluation due to the presence of reflux. The patient reports that she will wake up in the morning with food stuffs on her pillow which she had brought up overnight that she was unaware of. The patient does take a lot of medications particularly naproxen and methadone for chronic pain. The patient was appraised of the risks of the procedure including the risk of perforation, phlebitis, untoward reaction to medication, bleeding, and missed lesions. The patient verbalized her understanding and desired to have the procedure performed. DESCRIPTION OF PROCEDURE: The patient was given the medications by the anesthesia department. She had continuous pulse oximetry, ECG monitoring, intermittent blood pressure monitoring and tidal CO2 monitoring during the examination. She was placed in the left lateral decubitus position. A bite block was placed and the flexible Olympus gastroscope was used to intubate the oropharynx. A view of the larynx was obtained and was normal. The scope was easily passed in the esophagus which was normal throughout its length. The stomach was entered where some gastric rugal stuff still present. We suctioned clear as much as possible. The stomach was re-insufflated. The scope was passed along the greater curvature of the stomach to the antrum. There appeared to be a generalized erythema noted throughout the stomach. The pylorus was also irritated and had the appearance of slight bleeding at the pyloric channel even before we passed through it. We were able to advance the scope through the pylorus into the duodenum which appeared to be normal in appearance. The scope was withdrawn towards the stomach. Retroflex views obtained of the lesser curvature, fundus and cardia regions of the stomach. No significant lesions being noted here. The scope was redirected towards the gastric antrum and biopsies were obtained to rule out the presence of Helicobacter pylori type organisms. The scope was then removed from the patient who tolerated the procedure well and was sent back to outpatient recovery in good condition.
== END 2016-07-24 08:23 | disposition home or self-care (01) ==
LOC: SDC 06:05
PROVIDERS: ATTEND Family Medicine
PROC: 0DB68ZX Excision of Stomach, Via Natural or Artificial Opening Endoscopic, Diagnostic (ICD-10-PCS; principal; 2016-07-24)
DX: K29.70 Gastritis, unspecified, without bleeding (principal)
CPT/HCPCS: 00740; 36415; 88305; J2250; J2704

== ENCOUNTER 2017-07-15 09:56 | Emergency (ER) | payer MEDICARE ==
--- NOTE | 2017-07-15 11:25 | ERPHSYRPT ---
- History of Present Illness Time Seen by Provider: 07/15/17 10:10 Source: patient Exam Limitations: no limitations Patient Subjective Stated Complaint: PT HERE FOR PAIN TO LEFT FOOT AFTER A FALL TWICE THIS WEEK, PT HAS PAIN TO LEFT LOWER LEG Triage Nursing Assessment: PT ALERT, ARRIVED PER WC.STATES UNABLE TO BEAR WT, HAS ABRASION TO LEFT KNEE, AND LEIVA, AND SWELLING TO LEFT OUTER ASPECT OF ANKLE Physician History: patient stepped in a hole and twisted her left ankle and bruised her left knee last maceil; hx of neuropathy and falls a lot; no other injury or acute complaint Occurred: yesterday Reason for Fall: tripped, fell from standing pos Injuries/Pain Location: lower extremity (left ankle and knee) Loss of Consciousness: no loss of consciousness Quality: aching Severity of Pain-Max: severe Severity of Pain-Current: moderate Modifying Factors: Improves With: cold therapy, immobilization, movement ( worsens) Associated Symptoms (Fall): denies symptoms Allergies/Adverse Reactions: Sulfa (Sulfonamide Antibiotics) Allergy (Intermediate, Verified 07/15/17 10:22) Rash Home Medications: Baclofen 10 mg PO TID 11/27/15 [History] Methadone HCl 10 mg [DOLOPHINE 10MG Tablet] 10 mg PO BID 11/27/15 [History ] Pregabalin [Lyrica 150Mg] 150 mg PO BID 11/27/15 [History] Metoprolol Succinate 25 mg DAILY 04/10/16 [History] B Complex with Vitamin C [Vitamin B Complex-C] 1 each PO DAILY 07/12/16 [History ] Calcium Carb,Gluc/Mag Ox,Gluc [Calcium Magnesium Caplet] 1 each PO DAILY [History] Chromium/Herbal Complex No.238 [Green Tea Caplet] 1 each PO DAILY 07/12/16 [ History] Docusate Sodium 100 mg [Colace 100 MG] 100 mg PO DAILY PRN PRN 07/12/16 [ History] Folic Acid 0.4 mg PO DAILY 07/12/16 [History] Hydroxyzine HCl 25 mg PO BID 07/12/16 [History] Lansoprazole [Prevacid] 30 mg PO DAILY 07/12/16 [History] Magnesium Amino Acid Chelate [Magnesium] 200 mg PO DAILY 07/12/16 [History] Naproxen Sodium 500 mg PO BID 07/12/16 [History] Hx Tetanus, Diphtheria Vaccination/Date Given: Yes Hx Influenza Vaccination/Date Given: No Hx Pneumococcal Vaccination/Date Given: No Immunizations Up to Date: Yes - Review of Systems Constitutional: No Symptoms Eyes: No Symptoms Ears, Nose, & Throat: No Symptoms Respiratory: No Cough, No Dyspnea, No Wheezing Cardiac: No Chest Pain, No Palpitations, No Orthopnea Abdominal/Gastrointestinal: No Abdominal Pain, No Nausea, No Vomiting, No Diarrhea Genitourinary Symptoms: No Symptoms Musculoskeletal: Fall, Injury (left nakle and knee) Skin: Other (abrasion left knee) Neurological: Other (generalyzed neuropathy), No Focal Weakness, No Seizure, No Vertigo Psychological: No Symptoms Endocrine: No Symptoms Hematologic/Lymphatic: No Symptoms Immunological/Allergic: No Symptoms - Past Medical History Pertinent Past Medical History: Yes Neurological History: Migraines, Peripheral Neuropathy ENT History: No Pertinent History Cardiac History: No Pertinent History Respiratory History: No Pertinent History Endocrine Medical History: No Pertinent History Musculoskeletal History: Arthritis, Osteoporosis GI Medical History: GERD, Hernia History: No Pertinent History Psycho-Social History: No Pertinent History Female Reproductive Disorders: Cervical Cancer - Past Surgical History Past Surgical History: Yes Neuro Surgical History: No Pertinent History Cardiac: No Pertinent History Respiratory: No Pertinent History Gastrointestinal: No Pertinent History Genitourinary: No Pertinent History Musculoskeletal: No Pertinent History Female Surgical History: Tubal Ligation, Other Other Surgical History: pt had cervical cancer and had a laser surgery for that. pt had ganglion cyst removed josefina. wrist - Social History Smoking Status: Current every day smoker How long have you smoked: yrs Exposure to second hand smoke: Yes Alcohol Use: None Drug Use: marijuana Patient Lives Alone: No Significant Family History: no pertinent family hx - Female History Hx Last Menstrual Period: POST Hx Now: No - Nursing Vital Signs Nursing Vital Signs: Initial Vital Signs Temperature 97.0 F 07/15/17 10:13 Pulse Rate 63 07/15/17 10:13 Respiratory Rate 16 07/15/17 10:13 Blood Pressure 145/72 07/15/17 10:13 O2 Sat by Pulse Oximetry 98 07/15/17 10:13 Pain Scale Pain Intensity 10 - Nathaniel Coma Score Best Eye Response (Nathaniel): (4) open spontaneously Best Verbal Response (Nathaneil): (5) oriented Best Motor Response (Nathaniel): (6) obeys commands [place] Total: 15 - Physical Exam General Appearance: mild distress, alert, thin Head Injury: no evidence of injury Eye Exam: PERRL/EOMI ENT Exam: airway nml, nml ext.inspection, No dental injury Neck Exam: supple, trachea midline, full range of motion, normal alignment, normal inspection, No muscle spasm, No paraspinous muscle tender, No pain on movement of neck, No tenderness Respiratory/Chest Exam: normal breath sounds, No chest tenderness, No respiratory distress, No ecchymosis, No crepitus, No wheezing, No subcutaneous emphysema Cardiovascular Exam: normal heart sounds, regular rate/rhythm, normal peripheral pulses, No murmur, No edema Gastrointestinal Exam: soft, normal bowel sounds, No tenderness, No guarding, No organomegaly Rectal Exam: deferred Back Exam: normal inspection, normal range of motion, No CVA tenderness, No vertebral tenderness Extremity Exam: capillary refill <3 sec, pelvis stable, bony point tenderness ( med and lateral left ankle; slight anterior left knee), swelling (let ankle), other (knee stable; no foot drop), No paralysis, No amelia's sign, No hip tenderness Peripheral Pulses: carotid (R): 4+, carotid (L): 4+, femoral (R): 4+, femoral (L ): 4+, dorsalis-pedis (R): 3+, dorsalis-pedis (L): 3+ Neurologic Exam: alert, oriented x 3, cooperative, 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 nml as tested, normal mood/affect, sensation nml, No nml station & gait Skin Exam: normal color, warm, dry, abrasion (anterior left knee), No rash SpO2 Interpretation: normal SpO2: 98 Oxygen Delivery: Room Air Procedures - Splinting Location of Splint: Left Type of Splint: Walking Boot/Shoe Splint Applied By: ED Nurse Pre-Proc Neuro Vasc Exam: normal Post-Proc Neuro Vasc Exam: neurovascular intact - Radiology Exams Left Knee X-ray Interpretation: Interpreted by me, Negative, No Fracture Left Ankle X-ray Interpretation: Interpreted by me, No Fracture, Other (STS only) Ordered Tests: Active Orders 24 hr Category Date Time Status Cold Application STAT Care 07/15/17 10:15 Active Re-Check Vital Signs STAT Care 07/15/17 10:15 Active Splint STAT Care 07/15/17 11:18 Ordered Wound Care STAT Care 07/15/17 10:15 Active ANKLE (3 VIEWS) Stat Exams 07/15/17 10:15 Taken KNEE (3 VIEWS) Stat Exams 07/15/17 10:16 Taken - Progress Progress: re-examined Progress Note: 07/15/17 11:26 xr neg for fracture; discussed findings and treatment plan; walking boot applied ; instructions given - Departure Time of Disposition: 11:26 Departure Disposition: Home Clinical Impression: Contusion of left knee, initial encounter, Sprain of left ankle Condition: Stable Critical Care Time: No Referrals: CHE LOPEZ [Primary Care Provider] - Instructions: Contusion (DC), Ankle Sprain Additional Instructions: Acute Sprain Instructions lower extremity; R.I.C.E.; wear splint/immobilyzer as directed; observe for neuro-vascular compromise ( change in color; increased pain; cold to touch); Use crutches, walker, cane as directed. FU LMD/ specialist as directed; call for appointment as directed; Return if problems; Take meds as prescribed. Follow-up with family doctor as directed. Call for appointment. Return if any problems. If you smoke please stop. Call or follow up with your family doctor for assistance if you need it to stop. Please wear your seatbelt when driving. Have a nice day. Thank you for allowing us to participate in your care today. :o) Dr Anshu Smith Prescriptions: Naproxen Sodium [Anaprox Ds] 550 mg PO Q8H PRN PRN #14 tablet PRN Reason: Pain
[2017-07-15 11:48] VITALS: BP 144/74; PULSE 66; O2SAT 99
--- NOTE | 2017-07-15 21:06 | XRAY ---
Indication: Pain following fall. Comparison: April 26, 2017. 3 views of the left knee unchanged again demonstrating minimal medial joint space narrowing and prepatellar soft tissue swelling. No new/acute findings.
--- NOTE | 2017-07-15 21:16 | XRAY ---
Indication: Pain following fall. Comparison: None 3 views of the left ankle demonstrates anterolateral soft tissue swelling. No acute fracture, dislocation, or suspicious bony lesions.
== END 2017-07-15 11:49 | disposition home or self-care (01) ==
LOC: ED 09:56
DX: S93.402A Sprain of unspecified ligament of left ankle, initial encounter (principal); S80.02XA Contusion of left knee, initial encounter; X50.1XXA Overexertion from prolonged static or awkward postures, initial encounter; Z79.899 Other long term (current) drug therapy
CPT/HCPCS: 73562; 73610; 99284; L4386

== ENCOUNTER 2019-05-15 23:10 | Emergency (ER) | payer MEDICARE ==
[2019-05-15 23:37] VITALS: O2SAT 99
--- NOTE | 2019-05-15 23:45 | ERPHSYRPT ---
- History of Present Illness Time Seen by Provider: 05/15/19 23:35 Source: patient Exam Limitations: no limitations Patient Subjective Stated Complaint: pt states she had a brick fall off of her window sill and hit her in the head. Triage Nursing Assessment: pt alert and oriented, answers questions approp. pt ambulatory with steady gait noted. respirations nonlabored. pupils equal and reactive. bilat upper and lower ext strength equal and wnl. laceration approx 3 x 0.25cm to lt posterior head with minimal bleeding noted at this time. Physician History: About 90 minutes ago at home pt bent over and had a glass cube fall on the left side of her head with a resultant scalp laceration. pt states she has had a daily headache for the past 2 weeks. pt denies chest pain, back pain, fever, nausea, vomiting, tingling, numbness, weakness. Allergies/Adverse Reactions: Sulfa (Sulfonamide Antibiotics) Allergy (Intermediate, Verified 05/15/19 23:47) Rash Home Medications: Baclofen 10 mg PO TID 11/27/15 [History] Methadone HCl 10 mg [DOLOPHINE 10MG Tablet] 10 mg PO BID 11/27/15 [History ] Pregabalin [Lyrica 150Mg] 150 mg PO BID 11/27/15 [History] Metoprolol Succinate 25 mg DAILY 04/10/16 [History] B Complex with Vitamin C [Vitamin B Complex-C] 1 each PO DAILY 07/12/16 [History ] Calcium Carb,Gluc/Mag Ox,Gluc [Calcium Magnesium Caplet] 1 each PO DAILY [History] Chromium/Herbal Complex No.238 [Green Tea Caplet] 1 each PO DAILY 07/12/16 [ History] Docusate Sodium 100 mg [Colace 100 MG] 100 mg PO DAILY PRN PRN 07/12/16 [ History] Folic Acid 0.4 mg PO DAILY 07/12/16 [History] Hydroxyzine HCl 25 mg PO BID 07/12/16 [History] Lansoprazole [Prevacid] 30 mg PO DAILY 07/12/16 [History] Magnesium Amino Acid Chelate [Magnesium] 200 mg PO DAILY 07/12/16 [History] Naproxen Sodium 500 mg PO BID 07/12/16 [History] Hx Tetanus, Diphtheria Vaccination/Date Given: No (unsure) Hx Influenza Vaccination/Date Given: No Hx Pneumococcal Vaccination/Date Given: Yes Immunizations Up to Date: Yes Travel Risk - International Travel Have you traveled outside of the country in past 3 weeks: No (N) Have you or anyone close to you been diagnosed with or: No Do your reside in a community with a known COVID-19 case?: Yes If Yes where:: [place]. - Coronavirus Screening Has patient experienced Coronavirus symptoms: No - Review of Systems Constitutional: No Fever Ears, Nose, & Throat: No Throat Pain Respiratory: No Cough, No Dyspnea Cardiac: No Chest Pain Abdominal/Gastrointestinal: No Abdominal Pain, No Nausea, No Vomiting Musculoskeletal: No Back Pain, No Neck Pain Skin: Other (scalp laceration tonight) Neurological: Headache, No Focal Weakness, No Sensory Changes All Other Systems: Reviewed and Negative - Past Medical History Pertinent Past Medical History: Yes Neurological History: Migraines, Peripheral Neuropathy ENT History: No Pertinent History Cardiac History: No Pertinent History Respiratory History: No Pertinent History Endocrine Medical History: No Pertinent History Musculoskeletal History: Arthritis, Osteoporosis GI Medical History: GERD, Hernia History: No Pertinent History Psycho-Social History: No Pertinent History Female Reproductive Disorders: Cervical Cancer Other Medical History: hiatal hernia - Past Surgical History Past Surgical History: Yes Neuro Surgical History: No Pertinent History Cardiac: No Pertinent History Respiratory: No Pertinent History Gastrointestinal: No Pertinent History Genitourinary: No Pertinent History Musculoskeletal: No Pertinent History Female Surgical History: Tubal Ligation, Other Other Surgical History: pt had cervical cancer and had a laser surgery for that. pt had ganglion cyst removed josefina. wrist - Social History Smoking Status: Current every day smoker How long have you smoked: yrs Exposure to second hand smoke: Yes Alcohol Use: None Drug Use: marijuana Patient Lives Alone: No Significant Family History: no pertinent family hx - Nursing Vital Signs Nursing Vital Signs: Initial Vital Signs Temperature 97.0 F 05/15/19 23:19 Pulse Rate 62 05/15/19 23:19 Respiratory Rate 16 05/15/19 23:19 Blood Pressure 175/106 05/15/19 23:19 O2 Sat by Pulse Oximetry 99 05/15/19 23:19 Pain Scale Pain Intensity 9 - [place] Coma Score Best Eye Response (Nathaniel): (4) open spontaneously Best Verbal Response (Nathaniel): (5) oriented Best Motor Response (Nathaniel): (6) obeys commands Nathaniel Total: 15 - Physical Exam General Appearance: alert Head Injury: lacerations (3 cm laceration to left parietal scalp with mild edema.) Eye Exam: bilateral eye: PERRL, EOMI ENT Exam: airway nml, hearing grossly normal Neck Exam: trachea midline Cardiovascular/Respiratory Exam: normal breath sounds, heart sounds normal Gastrointestinal/Abdominal Exam: soft, normal bowel sounds Back Exam: No vertebral tenderness Extremity Exam: normal range of motion, No pedal edema Mental Status Exam: alert, cooperative 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 assembler Exam: normal hearing, normal speech, PERRL, tongue midline Motor/Sensory Exam: no motor deficit, no sensory deficit Skin Exam: No cyanosis SpO2 Interpretation: normal SpO2: 99 O2 Delivery: Room Air Procedures - Laceration/Wound Repair Left Parietal Wound Location: head Wound Length (cm): 3 Wound's Depth, Shape: superficial, linear Wound Explored: clean Irrigated: Yes Hibiclens Prep: Yes Anesthesia: 1% lidocaine w/ Epi Volume Anesthetic (ccs): 1 Wound Repaired With: [place] (4) Layer Closure?: No - Course Nursing assessment & vital signs reviewed: Yes - CT Exams Cervical Spine CT Interpretation: Tele-radiologist Report (no acute cervical spine fracture or other acute traumatic ct pathology.) Head CT Interpretation: Tele-radiologist Report (no acute intracranial pathology.) Ordered Tests: Active Orders 24 hr Category Date Time Status Prepare for Sutures STAT Care 05/15/19 23:48 Active Sutures STAT Care 05/15/19 23:49 Active Wound Care STAT Care 05/15/19 23:48 Active CERVICAL SPINE WO CONTRAST [CT] Stat Exams 05/15/19 00:06 Taken HEAD WITHOUT CONTRAST [CT] Stat Exams 05/15/19 23:46 Taken Medication Summary Discontinued Medications Generic Name Dose Route Start Last Admin Trade Name Freq PRN Reason Stop Dose Admin Acetaminophen 650 mg 05/15/19 23:46 05/15/19 23:57 Tylenol 325 Mg PO 05/15/19 23:47 650 mg STAT ONE Administration Acetaminophen Confirm 05/15/19 23:52 Tylenol 325 Mg Administered 05/15/19 23:53 Dose 650 mg .ROUTE .STK-MED ONE Lidocaine/Epinephrine 5 ml 05/15/19 23:48 Xylocaine 1%/Epi [id number] Mdv 20 Ml IJ 05/15/19 23:49 STAT ONE Lidocaine/Epinephrine Confirm 05/15/19 23:52 Xylocaine 1%/Epi 1:[id number] Mdv 20 Ml Administered 05/15/19 23:53 Dose 5 ml .ROUTE .STK-MED ONE Tetanus/Diphtheria Toxoids Adsorbed 0.5 ml 05/15/19 23:48 05/15/19 23:56 Tenivac Vial IM 05/15/19 23:49 0.5 ml .ONCE ONE Administration Tetanus/Diphtheria Toxoids Adsorbed Confirm 05/15/19 23:53 Tenivac Vial Administered 05/15/19 23:54 Dose 0.5 ml IM .STK-MED ONE - Progress Progress: improved Counseled pt/family regarding: rad results - Departure Departure Disposition: Home Clinical Impression: Head contusion, 3 cm laceration to scalp, Headache Condition: Stable Critical Care Time: No Referrals: ALPA MERAZ [Primary Care Provider] - Instructions: Laceration Repair With Yanna (DC) Additional Instructions: Follow up with private doctor tomorrow. Neosporin twice daily to scalp wound for 10 days. Have yanna removed in 10 days.
[2019-05-15] MEDS ORDERED: TYLENOL 325 MG PO ONE (23:46)
[2019-05-15] MEDS ORDERED: XYLOCAINE 1%/Epi 1:100000 MDV 20 ML IJ ONE (23:48)
[2019-05-15] MEDS ORDERED: TENIVAC VIAL IM ONE ×2 (23:48→23:53)
[2019-05-15] MEDS ORDERED: TYLENOL 325 MG ONE (23:52)
[2019-05-15] MEDS ORDERED: XYLOCAINE 1%/Epi 1:100000 MDV 20 ML ONE (23:52)
[2019-05-16 00:42] VITALS: BP 177/93; PULSE 71
--- NOTE | 2019-05-16 08:58 | XRAY ---
Indication: Laceration following injury. Multiple contiguous axial images obtained through the head without contrast. Comparison: April 10, 2016. Continued normal appearing brain parenchyma, ventricles, and bony calvarium. Minimal mucosal thickening of the both sphenoid sinuses with fluid leveling on the right. Mastoid air cells are clear. Impression: Minimal paranasal sinus disease. No acute intracranial abnormalities. Comment: Preliminary interpretation was made by [facility]. No critical discrepancy.
--- NOTE | 2019-05-16 09:12 | XRAY ---
Indication: Left neck pain following head injury with laceration. Multiple contiguous axial images obtained through the cervical spine. Sagittal and coronal reformatted images obtained. Comparison: April 10, 2016. Axial images again negative for acute fracture, suspicious bony lesions, or spinal canal stenosis. Grossly stable multilevel bilateral degenerative facet hypertrophy, multilevel anterior endplate spurring, and atlantoaxial degenerative changes. Sagittal and coronal reformatted images again demonstrate lordotic reversal with stable grade 1 anterolisthesis of C2 on C3 on C4. Minimal C5-C6 disc space narrowing. No acute compression fracture, sublocation, or jumped facet. Normal appearing craniocervical junction. Visualized noncontrasted soft tissues again demonstrates minimal carotid calcifications and tiny biapical calcified granulomas Impression: 1. Negative acute fracture. 2. Stable cervical lordotic reversal, positional versus paraspinal spasm. 3. Stable multilevel degenerative changes including grade 1 anterolisthesis of C2-C3-C4. Comment: Preliminary interpretation was made by [facility]. No critical discrepancy.
== END 2019-05-16 00:48 | disposition home or self-care (01) ==
LOC: ED 23:10
DX: S00.93XA Contusion of unspecified part of head, initial encounter (principal); S01.01XA Laceration without foreign body of scalp, initial encounter; R51 Headache
CPT/HCPCS: 12002; 70450; 72125; 90471; 90714; 96372; 99284; A9270-GY

== ENCOUNTER 2019-07-07 08:35 | Day surgery (SDC) | payer MEDICARE ==
--- NOTE | 2019-06-23 07:58 | HP ---
DATE OF SURGERY: 06/23/2019 HISTORY OF PRESENT ILLNESS: The patient is a 63 year-old had nonhealing lesions x2 involving the left leg that she failed in the past had failure to heal these nonhealing ulcerated lesions x2. It was felt she would benefit from excisional biopsy possible skin graft. PAST MEDICAL HISTORY: Hypertension. She has got some chronic neuropathy, had some reflux. PAST SURGICAL HISTORY: Ganglion cyst removed in the past. Cervical cancer in the past. Tubal ligation in the past. MEDICATIONS: Lyrica, lansoprazole, Baclofen, clonidine, metoprolol, benazepril. ALLERGIES: SULFA. FAMILY HISTORY: Negative in regards to this problem. SOCIAL HISTORY: One pack per day smoker. Alcohol use a couple of drinks. REVIEW OF SYSTEMS: Fourteen systems reviewed. No chest pain or palpitations. Pertinent for as noted above. PHYSICAL EXAMINATION: GENERAL: No acute distress. HEENT: Sclerae nonicteric. NECK: No JVD. CHEST: Equal excursion, nonlabored breathing. CVS: Regular rate and rhythm. ABDOMEN: Soft. No peritoneal signs. EXTREMITIES: No cyanosis. She has got some nonhealing lesions on her left leg x2 with some ulceration failed to heal in need of excision. NEURO: Alert, moving extremities symmetrically. She does have history of some chronic neuropathy. PSYCH: Appropriate mood and affect. IMPRESSION: Nonhealing ulcerated lesion x2 left leg. I feel the patient will benefit from excisional biopsy for definitive path and treatment. General risk of bleeding or infection, risk of cancer with involved margins possibly requiring wider excision or other treatment, risk of failure to heal particularly given her smoking history, possibility healing by secondary intent or other procedures or interventions, possible need for skin graft, general risk of aches and pains at donor site, risk of failure to take of the graft, possible healing by secondary intent but not limited to. She understands the real risk of nonhealing given her comorbidities and smoking history. She understands the importance of stopping smoking. She agrees to the planned procedure, will proceed with excisional biopsy left leg nonhealing ulcer lesion x2, possible skin graft as an outpatient.
--- NOTE | 2019-07-07 07:57 | HP ---
AMENDED REPORT: DATE OF SURGERY: 07/07/2019 HISTORY OF PRESENT ILLNESS: The patient is a 64 year-old with nonhealing lesions, increasing in size left leg with some ulceration in need of definitive excision for treatment, possible skin graft. PAST MEDICAL HISTORY: She has some reflux, hypertension, chronic neuropathy. The patient was in a wheelchair in the past and now better. PAST SURGICAL HISTORY: She had tubal in the past, had cervical cancer in the past and had a ganglion cyst in the past. MEDICATIONS: Includes lansoprazole, baclofen, Lyrica, clonidine, metoprolol, benazepril. ALLERGIES: SULFA. FAMILY HISTORY: Negative in regards to this problem. SOCIAL HISTORY: Pack per day smoker. Drinks a couple beers or wine denies abuse. REVIEW OF SYSTEMS: Fourteen systems reviewed per admission assessment. No chest pain or palpitations. Other systems negative or noncontributory as above and per preadmission questionnaire. PHYSICAL EXAMINATION: GENERAL: A chronically ill female in no acute distress. HEENT: Sclerae nonicteric. NECK: No JVD. CHEST: Equal excursion, nonlabored breathing. CVS: Regular rate and rhythm. ABDOMEN: Soft, nondistended. EXTREMITIES: No significant edema. Nonhealing and some ulcerated areas on her left leg in need of excision. PSYCH: Appropriate mood and affect. NEURO: Alert, oriented, moving extremities symmetrically. She does have chronic neuropathy. SKIN: Dry. IMPRESSION: Enlarging nonhealing left leg lesion with some ulceration in need of definitive excision possible skin graft. Risks and benefits explained in detail including but not limited to bleeding or infection, risk if these are malignancies risk of involved margins possibly requiring other treatments or procedures, risk of failure to heal the wound possibly healing secondary intent, general risk of anesthesia, deep venous thrombosis, pulmonary embolism or pneumonia but not limited to, risk of nonhealing of the wound or failure to take any graft, general risk of any aches or pains if graft used at the donor site but not limited to. She is agreeable to proceed with excisional biopsy left leg nonhealing ulcerating lesions x2, possible skin graft, excision and biopsy of a right lower extremity nonhealing lesion as an outpatient.
[~2019-07-07 08:35] MED LIST changes: +Lactated Ringers 0 ML IV ONE; +Lactated Ringers 1,000 ML IV ONE; +MINERAL OIL LIGHT 10 ML FOR SURGERY ONE; +Sensorcaine 0.25% 10 ML ONE
[2019-07-07] MEDS ORDERED: Zofran 4 MG/2 ML VIAL ONE (09:53)
[2019-07-07] MEDS ORDERED: Decadron 4 MG INJ ONE (09:53)
[2019-07-07] MEDS ORDERED: Zemuron 100 MG/10 ML ONE (09:53)
[2019-07-07] MEDS ORDERED: DIPRIVAN 200 MG/20 ML IV ONE (09:53)
[2019-07-07] MEDS ORDERED: BRIDION 200MG/2ML IV ONE (09:53)
[2019-07-07] MEDS ORDERED: Xylocaine-Mpf 2% 5 Ml Vial ONE (09:53)
[2019-07-07] MEDS ORDERED: SUBLIMAZE 100 MCG/2 ML ONE ×2 (09:53→11:58)
[2019-07-07] MEDS ORDERED: Ketamine HCl 50 MG/ML ONE (09:56)
[2019-07-07] MEDS ORDERED: ROBINUL ONE (11:22)
[2019-07-07] MEDS ORDERED: NORCO 5/325 MG PO PRN (13:38)
[2019-07-07 13:55] VITALS: BP 172/86; PULSE 55; O2SAT 97
--- NOTE | 2019-07-07 14:30 | OP ---
SURGERY DATE/TIME: 07/07/2019 1029 PREOPERATIVE DIAGNOSIS: Nonhealing ulcerated lesions left lower extremity x2, right lower extremity x1. POSTOPERATIVE DIAGNOSIS: Nonhealing ulcerated lesions left lower extremity x2, right lower extremity x1, path pending. PROCEDURES: 1) Excisional biopsy anterior left lower leg ulcerated nonhealing lesion (approximately 4 cm) with full thickness skin graft coverage (donor site left thigh). 2) Excisional biopsy left lateral lower leg ulcerated nonhealing lesion (approximately 2.5 cm) with intermediate closure with local advancement flap. 3) Excisional biopsy of nonhealing ulcerated right lower leg lesion (approximately 2.5 cm with margins) with intermediate closure local advancement flap. SURGEON: Dr. Roby Toro. ANESTHESIA: General. ESTIMATED BLOOD LOSS: Minimal. INDICATIONS: As noted above. Risks and benefits explained in detail and not limited to and consent obtained. The site is marked and confirmed in the preoperative holding area. DESCRIPTION OF PROCEDURE AND FINDINGS: She is taken to the operating room. General anesthesia induced. Bilateral lower extremities prepped and draped in usual sterile fashion. After official time out and no disagreement with planned procedure marking out around the left lateral lower leg lesion out to normal appearing skin. Ulcerated nonhealing lesion dissection carried down to normal appearing subcutaneous tissue with small oozing veins ligated as necessary. Tried to undermine the flaps on either side and advanced them back to the midline. The specimen was about 2.5 cm with margins. The skin was able to be closed advancing the flaps back to the midline with interrupted deep and superficial subcu 3-0 Vicryl. Skin closed and this was a little bit on the snug side. It was closed with 3-0 vertical mattress Prolene. Sterile dressing applied at the end of the procedure. At this point the larger anterior pretibial area left lower leg lesion dissected out to normal appearing skin around this circumferentially carefully dissecting off the underlying fascia and deep tissue and passed the specimen off. It measured about 4 cm. I had planned to use split thickness skin graft donor site left thigh. When starting to use this the dermatome actually had 0 power. It was seen to look fine with no resistance on the skin and with it failed to work on the left thigh as there was no other dermatome available the next best option is to try a full thickness skin graft. It was carefully harvested from the same left thigh. Full thickness skin graft size was 12 cm/sq approximately. Some slits were cut in it. It was then carefully secured with interrupted 4-0 Prolene circumferentially at the recipient site. Again, slits had been cut in to allow for any drainage. Adaptic, mineral oil and gauze compression dressing carefully applied with Prolene sutures tied over the top. We had to use the full thickness skin graft. The donor site was closed with 3-0 Vicryl closing the subcu. Skin closed with 4-0 Prolene running fashion. At the end of the procedure, Kerlix, EMMA wrap, compression dressing placed in addition to the gauze compression dressing. The patient tolerated this part of the procedure well. Attention then turned to the right lower extremity a little bit on the posterior side this lesion marked down to normal appearing skin resulting in about 2.5 cm specimen with margins dissected off the underlying subcutaneous tissue with flaps undermined on either side and mobilized in the midline with interrupted 3-0 Vicryl in deeper superficial subcu. Skin closed with interrupted vertical mattress 3-0 Prolene. Sterile dressing applied. The patient tolerated the procedure well. There were no immediate complications. There was no family available here to discuss the findings with. I will see her back in the office next week. Again unfortunately the dermatome failed to function and required attempt at full thickness skin graft 12 cm/sq.
== END 2019-07-07 14:15 | disposition home or self-care (01) ==
LOC: SDC 08:35
PROVIDERS: ATTEND Surgery
DX: C44.729 Squamous cell carcinoma of skin of left lower limb, including hip (principal); C44.722 Squamous cell carcinoma of skin of right lower limb, including hip; I10 Essential (primary) hypertension; K21.9 Gastro-esophageal reflux disease without esophagitis; G62.89 Other specified polyneuropathies; Z79.899 Other long term (current) drug therapy; Z85.41 Personal history of malignant neoplasm of cervix uteri
CPT/HCPCS: 93005; J1100; J2405; J2704; J3010; A9270-GY

== ENCOUNTER 2021-11-14 10:38 | Emergency (ER) | payer MEDICARE ==
--- NOTE | 2021-11-14 10:41 | ERPHSYRPT ---
- History of Present Illness Time Seen by Provider: 11/14/21 10:41 Source: patient Exam Limitations: no limitations Physician History: This is a 66-year-old right-handed female who is a patient Dr. Bennett and fell 2 days ago landing on her left hand suffering a laceration to the left hand third and fourth digits palmar aspect. She had put a dressing on the area but the pain is not improving. Patient has a history of significant arthritis, osteoarthritis, gastroesophageal reflux disease, neuropathy, migraine headaches and hypertension. Patient drove herself into the hospital Occurred: days ago (2) Method of Injury: fell Quality: constant, aching Severity of Pain-Max: moderate Severity of Pain-Current: moderate Extremities Pain Location: hand: left Associated Symptoms: none Allergies/Adverse Reactions: Sulfa (Sulfonamide Antibiotics) Allergy (Intermediate, Verified 06/16/19 16:55) Rash Home Medications: Baclofen 10 mg PO TID 11/27/15 [History] Pregabalin [Lyrica 150Mg] 150 mg PO TID 11/27/15 [History] Metoprolol Succinate 100 mg DAILY 04/10/16 [History] Lansoprazole [Prevacid] 30 mg PO DAILY 07/12/16 [History] Benazepril HCl [Lotensin] 20 mg PO DAILY 07/03/19 [History] Clonidine HCl 0.1 mg [Clonidine 0.1 mg Tablet] 0.1 mg PO BID 07/03/19 [History] Calcium Carbonate/Vitamin D3 [Calcium 500-Vit D3 125 Caplet] 1 each PO BID 07/04/19 [History] Hx Tetanus, Diphtheria Vaccination/Date Given: No (unsure) Hx Influenza Vaccination/Date Given: No Hx Pneumococcal Vaccination/Date Given: Yes Travel Risk - International Travel Have you traveled outside of the country in past 3 weeks: No - Coronavirus Screening Are you exhibiting any of the following symptoms?: No Close contact with a COVID-19 positive Pt in past 14-21 Days: No - Review of Systems Constitutional: No Symptoms Eyes: No Symptoms Ears, Nose, & Throat: No Symptoms Respiratory: No Symptoms Cardiac: No Symptoms Abdominal/Gastrointestinal: No Symptoms Genitourinary Symptoms: No Symptoms Musculoskeletal: Injury (Left hand palmar aspect digits 3 and 4) Skin: Other (Laceration digits 3 and 4 palmar aspect left hand) Neurological: No Symptoms Psychological: No Symptoms Endocrine: No Symptoms Hematologic/Lymphatic: No Symptoms Immunological/Allergic: No Symptoms All Other Systems: Reviewed and Negative - Past Medical History Pertinent Past Medical History: Yes Neurological History: Migraines, Peripheral Neuropathy ENT History: No Pertinent History Cardiac History: Hypertension Respiratory History: No Pertinent History Endocrine Medical History: No Pertinent History Musculoskeletal History: Arthritis, Osteoporosis GI Medical History: GERD, Hernia History: No Pertinent History Psycho-Social History: No Pertinent History Female Reproductive Disorders: Cervical Cancer Other Medical History: hiatal hernia, Pt states "had Hep B before " "have neuropathy" - Past Surgical History Past Surgical History: Yes Neuro Surgical History: No Pertinent History Cardiac: No Pertinent History Respiratory: No Pertinent History Gastrointestinal: No Pertinent History Genitourinary: No Pertinent History Musculoskeletal: No Pertinent History Female Surgical History: Tubal Ligation, Other Other Surgical History: pt had cervical cancer and had a laser surgery for that. pt had ganglion cyst removed josefina. wrist, bursitis in elbow operated on. cyst removed from chest - Social History Smoking Status: Current every day smoker How long have you smoked: yrs Exposure to second hand smoke: Yes Alcohol Use: None Drug Use: marijuana Patient Lives Alone: No Significant Family History: no pertinent family hx - Nursing Vital Signs Nursing Vital Signs: Initial Vital Signs Temperature 96.8 F 11/14/21 11:18 Pulse Rate 91 H 11/14/21 11:18 Respiratory Rate 18 11/14/21 11:18 Blood Pressure 127/76 11/14/21 11:18 O2 Sat by Pulse Oximetry 98 11/14/21 11:18 Pain Scale Pain Intensity 10 - Physical Exam General Appearance: no apparent distress, alert, anxiety Eyes, Ears, Nose, Throat Exam: normal ENT inspection, moist mucous membranes Neck Exam: normal inspection, non-tender, supple, full range of motion Cardiovascular/Respiratory Exam: chest non-tender, no respiratory distress Abdominal Exam: non-tender Back Exam: normal inspection Shoulder Exam: normal inspection, non-tender, no evidence of injury, normal ROM Elbow/Forearm Exam: normal inspection, non-tender, no evidence of injury, normal ROM Wrist Exam: normal inspection, non-tender, no evidence of injury, normal ROM Hand Exam: laceration (Palmar aspect left hand digits 3 and 4 horizontally oriented. No active bleeding. Bone exposed digit 4) Neuro/Tendon Exam: normal sensation, responds to pain (Difficult to assess the tendon function because of the pain and degree of the patient's arthritis.) Mental Status Exam: alert, oriented x 3, cooperative Skin Exam: laceration (See above) O2 Delivery: Room Air Ordered Tests: Active Orders 24 hr Category Date Time Status HAND (MINIMUM 3 VIEWS) Stat Exams 11/14/21 11:28 Completed Medication Summary Generic Name Dose Route Start Last Admin Trade Name Freq PRN Reason Stop Dose Admin Cefazolin Sodium 1 g 11/14/21 12:36 Cefazolin Sodium 1 Gm Vial IM 11/14/21 12:37 STAT ONE - Progress Progress: unchanged, pain not gone completely Progress Note: 11/14/21 12:41 Medical decision making: This patient's left hand x-ray shows degenerative changes with a question of old fracture of the head of the fifth middle phalanx. There is no evidence of any acute fracture. This patient has significant arthritis and the skin of the patient's hands bilaterally are very taut. There is bone exposure at the site of the left palmar fourth digit laceration. I think the best plan of care in this patient is to provide the patient with cefazolin injection with a antibiotic covering the laceration sites and place the hand in a functional position and dressed the site and refer the patient to a hand surgeon. We are attempting to contact Dr. Pinto out of [facility] in [place]. 11/14/21 12:48 I discussed this patient with Dr. Pinto, hand surgeon out of [facility] in [place]. I reviewed the patient's x-ray findings and clinical findings with him. His recommendation is to provide the patient with injectable cefazolin followed by outpatient Keflex and pain control. We will place the patient in a functional splint. We will make arrangements for an appointment for her to be seen this week. No sutures or surgical intervention on our part in the emergency room is necessary. Counseled pt/family regarding: diagnosis, need for follow-up, rad results - Departure Departure Disposition: Home Clinical Impression: Laceration of left hand Condition: Stable Critical Care Time: No Referrals: ALPA BENNETT [Primary Care Provider] - Follow up/PCP as directed Additional Instructions: Keep the hand in the dressing. Follow-up with the hand surgeon at the appointment date and time. Take the antibiotics as prescribed. Prescriptions: Hydrocodone/APAP 5/325 [[place] 5/325 mg] 1 each PO Q8H PRN PRN #9 tablet MDD 3 PRN Reason: Pain Cephalexin Mh 500 mg [Keflex 500 mg] 500 mg PO TID #21 cap
[2021-11-14 11:29] VITALS: BP 127/76; O2SAT 98
--- NOTE | 2021-11-14 11:51 | XRAY ---
Indication: Pain following fall. Comparison: None 3 view left hand demonstrates osteopenia, mild degenerative changes all IP joints, and moderate/advanced 1st metacarpal multangular degenerative changes with heterotopic ossifications. Query old fracture head 5th middle phalanx. No other bony, articular, or soft tissue abnormalities.
[2021-11-14] MEDS ORDERED: KEFZOL 1 GM IM ONE (12:36)
[2021-11-14] MEDS ORDERED: KEFZOL 1 GM ONE (12:55)
[2021-11-14] MEDS ORDERED: BACIGUENT PACKET TP ONE (13:06)
[2021-11-14] MEDS ORDERED: BACIGUENT PACKET ONE (13:07)
[2021-11-14 14:36] VITALS: PULSE 78
== END 2021-11-14 14:36 | disposition home or self-care (01) ==
LOC: ED 10:38
DX: S61.213A Laceration without foreign body of left middle finger without damage to nail, initial encounter (principal); S61.215A Laceration without foreign body of left ring finger without damage to nail, initial encounter; S63.285A Dislocation of proximal interphalangeal joint of left ring finger, initial encounter; W19.XXXA Unspecified fall, initial encounter; I10 Essential (primary) hypertension; Z72.0 Tobacco use; Z79.899 Other long term (current) drug therapy; Z79.891 Long term (current) use of opiate analgesic
CPT/HCPCS: 73130; 96372; 99283; A4570; J0690; A9270-GY